=== PATIENT | female | born 1970 | race Caucasian/White ===

== ENCOUNTER → 2016-10-12 | Outpatient (CLI) | payer OTHER ==
[~2016-10-12] MED LIST: ASPIRIN325 MG PO; ASPIRIN81 MG PO; BENADRYL25 MG PO; CANAGLIFLOZIN PO; FLEXERIL10 MG PO; FLEXERIL5 MG PO; GLUMETZA1000 MG PO; HYDROCODONE BIT1 T11 PO; IBU-8800 MG PO; INVOKANA300 M1 PO; INVOKANA300 MG PO; LEVOTHYROXIN0.175 MG PO; METFORMIN1000 MG PO; MOTRIN600 MG PO; MOTRIN800 MG PO; NORFLEX100 MG PO; PEPCID20 MG PO; PREDNICOT20 MG PO; PREDNISONE10 MG PO; ROBITUSSIN AC 110 ML PO; SYNTHROID,LEV175 MCG PO; SYNTHROID,LEVO75 MCG PO; TRADJENTA5 M1 PO; VICODIN 5/500 505 MG PO; [UNRECOGNIZED DRUG - OTHER] PO
[2016-10-12 07:57] LABS: HEMOGLOBIN 14.7 g/dl (12.0-16.0); MEAN CELL VOLUME 88.7 fl (81.0-99.0); MEAN CORPUSCULAR HGB 29.6 pg (27.0-31.0); MEAN CORPUSCULAR HGB CONC 33.4 g/dl (33.0-37.0); RED BLOOD COUNT 4.96 10*6/uL (4.10-5.10); RED CELL DISTRI WIDTH 13.4 % (0-14.5); WHITE BLOOD COUNT 7.6 10*3/uL (4.8-10.8)
[2016-10-12 08:20] LABS: HEMOGLOBIN A1c 7.5 % (4.8-5.6)
[2016-10-12 08:28] LABS: ALBUMIN 3.8 gm/dl (3.1-4.5); ALKALINE PHOSPHATASE 69 U/L (45-117); BILIRUBIN, TOTAL 0.5 mg/dl (0.2-1.0); BUN 13 mg/dl (7-24); CARBON DIOXIDE 26 mmol/L (21-32); CHLORIDE 105 mmol/L (98-107); CHOLESTEROL 212 mg/dL (<200); CPK 51 U/L (26-192); EST GLOM FILT AFRICAN AMERICAN > 60 ml/min; GLUCOSE 196 mg/dL (65-99); HDL CHOLESTEROL 52 mg/dl (40-60); LDL CHOLESTEROL 136 mg/dL (9-159); POTASSIUM 4.7 mmol/L (3.5-5.1); SGOT/AST 10 IU/L (3-35); SGPT/ALT 17 U/L (12-78); SODIUM 140 mmol/L (136-145); TOTAL PROTEIN 7.7 gm/dL (6.4-8.2); TRIGLYCERIDES 121 mg/dl (<150); VLDL CHOLESTEROL 24 mg/dL (6-40)
[2016-10-12 09:16] LABS: VITAMIN D, 25-HYDROXY 22.4 ng/mL (30-100)
== END | disposition home or self-care (01) ==
LOC: LAB 07:25
PROVIDERS: Family Medicine
DX: E55.9 Vitamin D deficiency, unspecified (principal); E11.9 Type 2 diabetes mellitus without complications; I10 Essential (primary) hypertension; E78.00 Pure hypercholesterolemia, unspecified

== ENCOUNTER → 2017-05-23 | Outpatient (CLI) | payer OTHER ==
[2017-05-23 10:05] LABS: ALBUMIN 3.5 gm/dl (3.1-4.5); ALKALINE PHOSPHATASE 77 U/L (45-117); BUN 9 mg/dl (7-24); CHLORIDE 105 mmol/L (98-107); CHOLESTEROL 166 mg/dL (<200); CPK 41 U/L (26-192); CREATININE 0.58 mg/dL (0.55-1.02); FREE T4 1.71 ng/dl (0.76-1.46); HDL CHOLESTEROL 55 mg/dl (40-60); LDL CHOLESTEROL 97 mg/dL (9-159); POTASSIUM 4.1 mmol/L (3.5-5.1); SGOT/AST 11 IU/L (3-35); SGPT/ALT 21 U/L (12-78); SODIUM 138 mmol/L (136-145); TOTAL PROTEIN 7.2 gm/dL (6.4-8.2); TRIGLYCERIDES 68 mg/dl (<150); VLDL CHOLESTEROL 14 mg/dL (6-40)
[2017-05-23 10:12] LABS: THYROID STIM HORMONE (HS) < 0.005 uIU/ml (0.358-4.75)
== END | disposition home or self-care (01) ==
LOC: LAB 09:08
PROVIDERS: Family Medicine
DX: E11.9 Type 2 diabetes mellitus without complications (principal); E03.9 Hypothyroidism, unspecified; M19.90 Unspecified osteoarthritis, unspecified site

== ENCOUNTER 2017-07-29 10:30 | Emergency (ER) | payer OTHER ==
[~2017-07-29] VITALS: Wt 64.4 kg
[2017-07-29 10:49] VITALS: BP 94/77
[2017-07-29 11:21] LABS: BASO # 0.1 10*3/uL (0.0-0.1); BASO % 0.7 % (0.0-1.0); EOS # 0.1 10*3/uL (0.0-0.4); EOS % 1.1 % (1.0-4.0); HEMATOCRIT 44.9 % (37.0-47.0); HEMOGLOBIN 14.8 g/dl (12.0-16.0); LYMPH # 1.6 10*3/uL (1.3-4.4); LYMPH % 18.3 % (27.0-41.0); MEAN CELL VOLUME 89.4 fl (81.0-99.0); MEAN CORPUSCULAR HGB 29.5 pg (27.0-31.0); MEAN PLATELET VOLUME 9.9 fl (9.6-12.3); MONO # 0.6 10*3/uL (0.1-1.0); NEUT # 6.4 10*3/uL (2.3-7.9); NEUT % 72.7 % (47.0-73.0); PLATELET COUNT AUTOMATED 276 10*3/uL (130-400); RED BLOOD COUNT 5.02 10*6/uL (4.10-5.10); RED CELL DISTRI WIDTH 13.5 % (0-14.5); WHITE BLOOD COUNT 8.9 10*3/uL (4.8-10.8)
[2017-07-29 11:35] LABS: INTERNATIONAL NORM RATIO 0.9 (2.0-3.5)
[2017-07-29 11:37] LABS: ALBUMIN 3.7 gm/dl (3.1-4.5); ALKALINE PHOSPHATASE 92 U/L (45-117); BUN 10 mg/dl (7-24); CHLORIDE 103 mmol/L (98-107); CREATININE 0.72 mg/dL (0.55-1.02); POTASSIUM 4.2 mmol/L (3.5-5.1); SGOT/AST 11 IU/L (3-35); SGPT/ALT 17 U/L (12-78); SODIUM 137 mmol/L (136-145); TOTAL PROTEIN 7.3 gm/dL (6.4-8.2)
[2017-07-29 11:38] LABS: TROPONIN I < 0.015 ng/ml (<0.045)
== END 2017-07-29 14:12 | disposition home or self-care (01) ==
LOC: ED 10:30
PROVIDERS: Physician Assistant
DX: M79.89 Other specified soft tissue disorders (principal); Z88.0 Allergy status to penicillin; Z88.1 Allergy status to other antibiotic agents; Z79.899 Other long term (current) drug therapy; Z79.82 Long term (current) use of aspirin; Z86.718 Personal history of other venous thrombosis and embolism

== ENCOUNTER 2017-12-11 11:16 | Inpatient (IN) | payer OTHER ==
[2017-12-11] VITALS (9 sets, daily range): BP systolic 89–177; BP diastolic 50–88
[~2017-12-11] VITALS: Ht 162.5 cm; Wt 67.7 kg
--- NOTE | ~2017-12-11 | EKG ---
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
--- NOTE | ~2017-12-11 | PR ---
[place], [place] PROGRESS NOTE NAME: CARLYN FELIX [facility] #: [id number] UNIT #: [id number] ROOM: 503 DOCTOR: LUZ STRONG MD BIRTHDATE: [birth year] DOS: 12/12/2017 SUBJECTIVE: The patient was seen at her bedside today, 12/12/2017, with family in attendance. She is a 47-year-old woman with no previous personal cardiac history, who presented to the hospital with several weeks of intermittent left anterior chest pain with radiation to the neck and back. Episodes occurred with exertion and were improved with rest. The episodes could last extended period of time and were not associated with diaphoresis, dyspnea, syncope, etc. She came to the Emergency Room because of episodic lightheadedness, at the request of her primary physician, Dr. Gamboa. Since she has been in the hospital, she has had several electrocardiograms, which show no evidence for ischemia. Serial cardiac troponin levels have all been normal. PHYSICAL EXAMINATION: VITAL SIGNS: Today her pulse is 80 and regular, blood pressure is 105/69. She is afebrile. She weighs 67.7 kg and has a body mass index of 25.6. NECK: Supple. She has no jugular distention. Carotids are full. LUNGS: Respirations are unlabored. Her chest is clear to auscultation and percussion. She has no presacral edema or chest wall tenderness. HEART: Has a regular rhythm. She has an S4 gallop, but no S3. ABDOMEN: Soft and normally active. EXTREMITIES: Showed no edema. IMPRESSION: 1. Chest pain with exertion. The patient has both typical and atypical features to her chest pain. 2. Normal electrocardiogram and cardiac biomarkers. 3. History of factor V Leiden mutation. The patient is on chronic antiplatelet therapy. 4. History of hypothyroidism. 5. Type 2 diabetes mellitus. 6. Family history of coronary artery disease. PLAN: The patient will be discharged to home at this point, but brought back into the hospital within the next few days for an outpatient exercise myocardial perfusion examination. Further recommendations will depend upon the results of her stress test. We will arrange for the patient to come back in within the next few days. I have discussed her situation and management with Dr. Edmar Langford and we were in agreement. [place], [place] PROGRESS NOTE NAME: CARLYN FELIX UNIT #: [id number] ROOM: 503 DOCTOR: LUZ STRONG MD BIRTHDATE: [birth year] LUZ STRONG MD CM:PNTRANS [id number] LUZ STRONG MD 12/13/17 1233 interface
--- NOTE | ~2017-12-11 | EKG ---
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
--- NOTE | ~2017-12-11 | WRIGHTHP ---
[place], [place] PATIENT HISTORY AND PHYSICAL EXAM NAME: CARLYN FELIX [facility] #: [id number] UNIT #: [id number] ROOM: 503 DOCTOR: LAKSHMI FAIRBANKS MD BIRTHDATE: [birth year] DOS: 12/11/2017 HISTORY OF PRESENT ILLNESS: The patient is a 47-year-old female with a past medical history of: 1. Type 2 diabetes mellitus with hemoglobin A1c of 7 prior to admission. 2. Hypothyroidism. 3. History of DVT of the left leg and left eye. The patient kept on aspirin. 4. Factor V coagulopathy. The patient presented to the Emergency Department with few days complaint of chest pains going into the back off and on. The pains were midsternal and also going into the left neck. The patient also realized that she has had these pains occasionally for 2 months or more. The pain was worse with exertion and improved with rest. The patient was admitted and Cardiology was consulted. The patient's cardiac enzymes checked out to be normal and assistant men's soccer coach recommended that the patient can be discharged to home since she is asymptomatic and return in a next few days for a cardiac stress test. No more chest pain, shortness of breath. No GI or urinary symptoms. REVIEW OF SYSTEMS: LUNGS: No increasing shortness of breath. GASTROINTESTINAL: No nausea, vomiting, diarrhea or constipation. CARDIOVASCULAR SYSTEM: Complains of chest pains radiating into the back and left shoulder. MEDICATIONS: Levothyroxine, aspirin, Farxiga, omeprazole, metformin. ALLERGIES: KNOWN ALLERGIES TO PENICILLIN, WHICH CAUSES RASH; BIAXIN AND MACROBID. FAMILY HISTORY: Noncontributory, except for some cardiac history in her mother. PHYSICAL EXAMINATION: GENERAL: Alert and oriented x 3. HEENT AND NECK: Extraocular movements are intact. Sclerae are anicteric. Oral mucosa is moist and clean. No obvious facial weakness. Neck is supple without any lymphadenopathy. No thyromegaly. No JVD. No carotid arterial bruits. LUNGS: Clear to auscultation. No wheezing. No rhonchi. CARDIOVASCULAR SYSTEM: Heart rate is regular in rate and rhythm. S1 and S2 normally audible. No significant murmur or any other abnormal cardiac sounds. ABDOMEN: Soft, nontender. No obvious organomegaly. Bowel sounds are present. No obvious herniation. EXTREMITIES: Without significant cyanosis or edema. Warm to touch. CENTRAL NERVOUS SYSTEM: Alert and oriented x 3. Cranial nerves II-XII are intact. Speech is normal. The patient is able to move all extremities. Normal muscle strength. Deep tendon reflexes are equal on both sides. Plantars were downgoing. IMPRESSION: [place], [place] PATIENT HISTORY AND PHYSICAL EXAM NAME: CARLYN FELIX UNIT #: [id number] ROOM: [facility] DOCTOR: LAKSHMI FAIRBANKS MD BIRTHDATE: [birth year] 1. Chest pains from uncertain etiology. Cardiac enzymes were all negative. The patient evaluated by Cardiology and recommended for discharge to home today because she is asymptomatic and for the patient to return in a few days for a cardiac stress test to be performed by the assistant men's soccer coach. 2. The patient to follow up with Dr. Gonzalo Gamboa, her PCP within a week. 3. Type 2 diabetes mellitus, with reasonably controlled blood sugars. Blood sugar 167. HbA1c checked prior to this admission according to the patient was 7, lipase 354. Normal CBC. Chest x-ray with no acute process. The patient with diabetes mellitus, high risk for vascular disease, started on Lipitor by Cardiology. Type 2 diabetes mellitus. Blood sugars appear to be reasonably controlled. 4. Coagulopathy with history of deep venous thrombosis in the left leg and left eye. The patient remains on aspirin for anticoagulation because she has factor V coagulopathy. 5. The patient to follow up with Dr. Gonzalo Gamboa within a week and for a cardiac stress test with the assistant men's soccer coach on Thursday or Thursday. Case was discussed with Dr. Jeffery today. LAKSHMI FAIRBANKS MD CM:HISPHYS:PATIENT HISTORY AND PHYSICAL EXAMINATION 1441 [id number] LAKSHMI FAIRBANKS MD 12/13/17 0220 interface
--- NOTE | ~2017-12-11 | EKG ---
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
[~2017-12-11 11:16] MED LIST changes: -LEVOTHYROXIN0.175 MG PO; +Synthroid,Lev150 MCG PO
[2017-12-11 11:29] LABS: BASO # 0.1 10*3/uL (0.0-0.1); EOS # 0.2 10*3/uL (0.0-0.4); EOS % 2.3 % (1.0-4.0); HEMATOCRIT 45.8 % (37.0-47.0); HEMOGLOBIN 15.4 g/dl (12.0-16.0); LYMPH % 28.1 % (27.0-41.0); MEAN CORPUSCULAR HGB 30.3 pg (27.0-31.0); MEAN CORPUSCULAR HGB CONC 33.6 g/dl (33.0-37.0); MEAN PLATELET VOLUME 10.9 fl (9.6-12.3); MONO # 0.6 10*3/uL (0.1-1.0); MONO % 8.3 % (3.0-9.0); NEUT # 4.4 10*3/uL (2.3-7.9); PLATELET COUNT AUTOMATED 329 10*3/uL (130-400); RED BLOOD COUNT 5.09 10*6/uL (4.10-5.10); WHITE BLOOD COUNT 7.3 10*3/uL (4.8-10.8)
[2017-12-11] MEDS ORDERED: FARXIGA10 M1 PO (11:31)
[2017-12-11] MEDS ORDERED: OMEPRAZOLE40 MG PO (11:31)
[2017-12-11] MEDS ORDERED: METFORMIN HYD1000 MG PO (11:32)
[2017-12-11 12:02] LABS: INTERNATIONAL NORM RATIO 0.9 (2.0-3.5)
[2017-12-11 12:10] LABS: ALBUMIN 3.9 gm/dl (3.1-4.5); ALKALINE PHOSPHATASE 86 U/L (45-117); BUN 11 mg/dl (7-24); CHLORIDE 103 mmol/L (98-107); POTASSIUM 4.3 mmol/L (3.5-5.1); SGOT/AST 11 IU/L (3-35); SGPT/ALT 16 U/L (12-78); SODIUM 137 mmol/L (136-145); TOTAL PROTEIN 7.7 gm/dL (6.4-8.2)
[2017-12-11 12:11] LABS: TROPONIN I < 0.015 ng/ml (<0.045)
[2017-12-12] VITALS: BP 94/52
[2017-12-12 03:45] VITALS: BP 86/58
[2017-12-12 08:00] VITALS: BP 95/57
[2017-12-12 09:03] VITALS: BP 95/57
[2017-12-12 12:00] VITALS: BP 105/69
[2017-12-12 12:57] VITALS: BP 105/69
[2017-12-12] MEDS ORDERED: ATORVASTATIN CA40 M1 PO (14:19)
== END 2017-12-12 15:05 | disposition home or self-care (01) | DRG 313 ==
LOC: ED 11:16 → EDHOLD 12:55 → 5E 12:55
PROVIDERS: Emergency Medicine
DX: R07.89 Other chest pain (principal); D68.51 Activated protein C resistance; D68.9 Coagulation defect, unspecified; E03.9 Hypothyroidism, unspecified; E11.65 Type 2 diabetes mellitus with hyperglycemia; R03.0 Elevated blood-pressure reading, without diagnosis of hypertension; R00.0 Tachycardia, unspecified; Z79.82 Long term (current) use of aspirin; Z79.84 Long term (current) use of oral hypoglycemic drugs; Z88.0 Allergy status to penicillin; Z88.8 Allergy status to other drugs, medicaments and biological substances; Z98.891 History of uterine scar from previous surgery; Z90.710 Acquired absence of both cervix and uterus; Z86.718 Personal history of other venous thrombosis and embolism; Z83.3 Family history of diabetes mellitus; Z82.49 Family history of ischemic heart disease and other diseases of the circulatory system

== ENCOUNTER → 2017-12-16 | Outpatient (CLI) | payer OTHER ==
[~2017-12-16] MED LIST changes: +ATORVASTATIN CA40 M1 PO; +FARXIGA10 M1 PO; +METFORMIN HYD1000 MG PO; +OMEPRAZOLE40 MG PO
--- NOTE | ~2017-12-16 | ST ---
[place], [place] EXERCISE STRESS TEST REPORT NAME: CARLYN FELIX [facility] #: [id number] UNIT #: [id number] ROOM: DOCTOR: ROBERTO JOHNSTON MD BIRTHDATE: [birth year] DOS: 12/16/2017 EXERCISE TREADMILL STRESS TEST REFERRING PHYSICIAN: Dr. Gamboa INDICATION: Chest pain. The patient underwent standard Mickey protocol exercise treadmill stress testing prior to the perfusion scan imaging. The patient's baseline EKG showed nonspecific ST-T wave changes. The patient's baseline heart rate is 83 beats per minute, blood pressure 110/76. The patient exercised for 5 minutes with a peak heart rate of 67, which represents 96.5% of maximum predicted, the patient's peak blood pressure of 140/68. The patient had non-limiting chest discomfort with exertion. The patient had no ischemic change in EKG. No other arrhythmias. The patient's [place] Treadmill score was 1. SUMMARY OF FINDINGS: 1. No inducible ischemic changes on EKG. 2. The patient had exertional chest pain that was nonlimiting. 3. [place] Treadmill score of 1 portending intermediate risk prognosis secondary to the chest pain experience. 4. Please see separate report for perfusion scan imaging results. ROBERTO JOHNSTON MD CM:STRESS:EXERCISE STRESS TEST REPORT 1237 ROBERTO JOHNSTON MD
== END | disposition home or self-care (01) ==
LOC: CARD 01:53
DX: I21.3 ST elevation (STEMI) myocardial infarction of unspecified site (principal)

== ENCOUNTER → 2019-10-15 | Outpatient (CLI) | payer OTHER ==
[2019-10-15 08:50] LABS: HEMATOCRIT 43.7 % (37.0-47.0); MEAN CORPUSCULAR HGB 30.9 pg (27.0-31.0); MEAN CORPUSCULAR HGB CONC 33.6 g/dl (33.0-37.0); MEAN PLATELET VOLUME 9.5 fl (9.6-12.3); RED BLOOD COUNT 4.75 10*6/uL (4.10-5.10); RED CELL DISTRI WIDTH 13.3 % (0-14.5); WHITE BLOOD COUNT 5.9 10*3/uL (4.8-10.8)
[2019-10-15 09:21] LABS: ALBUMIN 3.4 gm/dl (3.1-4.5); ALKALINE PHOSPHATASE 83 U/L (45-117); BUN 12 mg/dl (7-24); CHLORIDE 102 mmol/L (98-107); CHOLESTEROL 232 mg/dL (<200); POTASSIUM 4.7 mmol/L (3.5-5.1); SGOT/AST 7 IU/L (3-35); SGPT/ALT 17 U/L (12-78); SODIUM 136 mmol/L (136-145); TOTAL PROTEIN 7.2 gm/dL (6.4-8.2)
[2019-10-15 09:29] LABS: FREE T4 1.07 ng/dl (0.76-1.46); HDL CHOLESTEROL 51 mg/dl (40-60); LDL CHOLESTEROL 159 mg/dL (9-159); TRIGLYCERIDES 111 mg/dl (<150); VLDL CHOLESTEROL 22 mg/dL (6-40)
== END | disposition home or self-care (01) ==
LOC: LAB 08:33
PROVIDERS: Nurse Practitioner Family
DX: E11.9 Type 2 diabetes mellitus without complications (principal); E55.9 Vitamin D deficiency, unspecified; E78.00 Pure hypercholesterolemia, unspecified; E03.9 Hypothyroidism, unspecified

== ENCOUNTER → 2020-04-28 | Outpatient (CLI) | payer OTHER | END | disposition home or self-care (01) | LOC: COVID19 12:45 | PROVIDERS: ATTEND Nurse Practitioner Family | DX: U07.1 COVID-19 (principal) ==

== ENCOUNTER → 2020-05-07 | Outpatient (CLI) | payer OTHER | END | disposition home or self-care (01) | LOC: RAD 11:17 | PROVIDERS: ATTEND Family Medicine | DX: J18.9 Pneumonia, unspecified organism (principal) ==

== ENCOUNTER → 2020-05-18 | Outpatient (CLI) | payer OTHER | END | disposition home or self-care (01) | LOC: RAD 09:57 | PROVIDERS: ATTEND Family Medicine | DX: J18.9 Pneumonia, unspecified organism (principal) ==

== ENCOUNTER → 2020-12-18 | Outpatient (CLI) | payer OTHER ==
[2020-12-18 09:30] LABS: BASO # 0.1 10*3/uL (0.0-0.1); BASO % 0.9 % (0.0-1.0); EOS # 0.3 10*3/uL (0.0-0.4); EOS % 4.9 % (1.0-4.0); HEMATOCRIT 43.1 % (37.0-47.0); LYMPH # 1.6 10*3/uL (1.3-4.4); LYMPH % 23.6 % (27.0-41.0); MEAN CELL VOLUME 90.5 fl (81.0-99.0); MEAN CORPUSCULAR HGB 30.3 pg (27.0-31.0); MEAN CORPUSCULAR HGB CONC 33.4 g/dl (33.0-37.0); MEAN PLATELET VOLUME 9.7 fl (9.6-12.3); MONO # 0.5 10*3/uL (0.1-1.0); MONO % 7.6 % (3.0-9.0); NEUT # 4.4 10*3/uL (2.3-7.9); NEUT % 62.9 % (47.0-73.0); PLATELET COUNT AUTOMATED 329 10*3/uL (130-400); RED BLOOD COUNT 4.76 10*6/uL (4.10-5.10); RED CELL DISTRI WIDTH 13.1 % (0-14.5); WHITE BLOOD COUNT 6.9 10*3/uL (4.8-10.8)
[2020-12-18 09:47] LABS: ALBUMIN 3.5 gm/dl (3.1-4.5); BUN 8 mg/dl (7-24); CHLORIDE 107 mmol/L (98-107); POTASSIUM 4.2 mmol/L (3.5-5.1); SODIUM 137 mmol/L (136-145)
[2020-12-18 09:55] LABS: ALKALINE PHOSPHATASE 80 U/L (45-117); CHOLESTEROL 201 mg/dL (<200); CREATININE 0.61 mg/dL (0.55-1.02); FREE T4 1.05 ng/dl (0.76-1.46); LDL CHOLESTEROL 140 mg/dL (9-159); SGOT/AST 12 IU/L (3-35); SGPT/ALT 18 U/L (12-78); TOTAL PROTEIN 7.3 gm/dL (6.4-8.2); TRIGLYCERIDES 82 mg/dl (<150)
== END | disposition home or self-care (01) ==
LOC: LAB 08:55
PROVIDERS: ATTEND Family Medicine
DX: E11.9 Type 2 diabetes mellitus without complications (principal); E03.9 Hypothyroidism, unspecified; R53.83 Other fatigue; E55.9 Vitamin D deficiency, unspecified

== ENCOUNTER → 2021-10-04 | Outpatient (CLI) | payer OTHER ==
[2021-10-04 10:42] LABS: HEMATOCRIT 43.5 % (37.0-47.0); MEAN CELL VOLUME 87.9 fl (81.0-99.0); MEAN CORPUSCULAR HGB 30.7 pg (27.0-31.0); MEAN CORPUSCULAR HGB CONC 34.9 g/dl (33.0-37.0); MEAN PLATELET VOLUME 9.6 fl (9.6-12.3); RED BLOOD COUNT 4.95 10*6/uL (4.10-5.10); RED CELL DISTRI WIDTH 12.5 % (0-14.5); WHITE BLOOD COUNT 8.8 10*3/uL (4.8-10.8)
[2021-10-04 11:16] LABS: ALKALINE PHOSPHATASE 81 U/L (45-117); BUN 14 mg/dl (7-24); CHLORIDE 100 mmol/L (98-107); CHOLESTEROL 181 mg/dL (<200); CPK 55 U/L (26-192); CREATININE 0.67 mg/dL (0.55-1.02); FREE T4 1.27 ng/dl (0.76-1.46); LDL CHOLESTEROL 113 mg/dL (9-159); POTASSIUM 4.2 mmol/L (3.5-5.1); SGOT/AST 12 IU/L (3-35); SGPT/ALT 17 U/L (12-78); SODIUM 131 mmol/L (136-145); TOTAL PROTEIN 7.9 gm/dL (6.4-8.2); TRIGLYCERIDES 108 mg/dl (<150)
[2021-10-04 11:20] LABS: VITAMIN D, 25-HYDROXY 18.5 ng/mL (30-100)
[2021-10-04 11:21] LABS: THYROID STIM HORMONE (HS) 0.686 uIU/ml (0.358-4.75)
[2021-10-05 07:07] LABS: FOLLICLE STIMULATING HORMONE 2.8 mIU/mL (.); LUTEINIZING HORMONE 1.5 mIU/mL (.)
[2021-10-08 16:08] LABS: TESTOSTERONE FREE, (DIRECT) 0.5 pg/mL (0.0-4.2)
== END | disposition home or self-care (01) ==
LOC: LAB 10:21
PROVIDERS: ATTEND Family Medicine
DX: I10 Essential (primary) hypertension (principal); E11.9 Type 2 diabetes mellitus without complications; E03.9 Hypothyroidism, unspecified; E78.00 Pure hypercholesterolemia, unspecified; N95.1 Menopausal and female climacteric states

== ENCOUNTER 2023-03-16 05:08 | Emergency (ER) | payer OTHER ==
[~2023-03-16] VITALS: Ht 160 cm; Wt 77.1 kg
[2023-03-16 05:10] VITALS: BP 138/87
[2023-03-16] MEDS ORDERED: LEVOTHYROXINE150 MCG PO (05:19)
[2023-03-16] MEDS ORDERED: METFORMIN XR500 MG PO (05:19)
[2023-03-16 05:59] LABS: ALKALINE PHOSPHATASE 80 U/L (46-116); BUN 9 mg/dl (9-23); CHLORIDE 103 mmol/L (98-107); SGPT/ALT 15 U/L (10-49); TOTAL PROTEIN 7.1 gm/dL (6.0-8.0)
[2023-03-16 06:01] LABS: BASO # 0.1 10*3/uL (0.0-0.1); BASO % 0.9 % (0.0-1.0); EOS # 0.6 10*3/uL (0.0-0.4); EOS % 8.2 % (1.0-4.0); HEMATOCRIT 42.6 % (37.0-47.0); LYMPH # 1.4 10*3/uL (1.3-4.4); MEAN CELL VOLUME 90.4 fl (81.0-99.0); MEAN CORPUSCULAR HGB 31.4 pg (27.0-31.0); MEAN CORPUSCULAR HGB CONC 34.7 g/dl (33.0-37.0); MEAN PLATELET VOLUME 10.4 fl (9.6-12.3); MONO # 0.7 10*3/uL (0.1-1.0); MONO % 9.9 % (3.0-9.0); NEUT # 4.5 10*3/uL (2.3-7.9); NEUT % 60.3 % (47.0-73.0); PLATELET COUNT AUTOMATED 312 10*3/uL (130-400); RED BLOOD COUNT 4.71 10*6/uL (4.10-5.10); RED CELL DISTRI WIDTH 13.2 % (0-14.5); WHITE BLOOD COUNT 7.5 10*3/uL (4.8-10.8)
[2023-03-16] MEDS ORDERED: OMNICEF300 MG PO (06:11)
== END 2023-03-16 06:54 | disposition home or self-care (01) ==
LOC: ED 05:08
PROVIDERS: Internal Medicine
DX: J40 Bronchitis, not specified as acute or chronic (principal); E11.9 Type 2 diabetes mellitus without complications; Z86.718 Personal history of other venous thrombosis and embolism; K21.9 Gastro-esophageal reflux disease without esophagitis; E78.00 Pure hypercholesterolemia, unspecified; Z88.0 Allergy status to penicillin; Z88.1 Allergy status to other antibiotic agents; Z88.8 Allergy status to other drugs, medicaments and biological substances; Z90.710 Acquired absence of both cervix and uterus; Z98.890 Other specified postprocedural states; Z20.822 Contact with and (suspected) exposure to COVID-19

== ENCOUNTER → 2023-08-01 | Outpatient (CLI) | payer OTHER ==
[~2023-08-01] MED LIST changes: +LEVOTHYROXINE150 MCG PO; +METFORMIN XR500 MG PO; +OMNICEF300 MG PO
[2023-08-01 07:35] LABS: HEMATOCRIT 43.5 % (37.0-47.0); MEAN CORPUSCULAR HGB CONC 32.6 g/dl (33.0-37.0); MEAN PLATELET VOLUME 9.6 fl (9.6-12.3); RED BLOOD COUNT 4.58 10*6/uL (4.10-5.10); RED CELL DISTRI WIDTH 13.2 % (0-14.5); WHITE BLOOD COUNT 6.9 10*3/uL (4.8-10.8)
[2023-08-01 08:00] LABS: ALKALINE PHOSPHATASE 85 U/L (46-116); BUN 11 mg/dl (9-23); CHLORIDE 105 mmol/L (98-107); CHOLESTEROL 194 mg/dL (<200); CPK 64 U/L (34-171); FREE T4 1.34 ng/dl (0.89-1.76); LDL CHOLESTEROL 124 mg/dL (9-159); POTASSIUM 4.5 mmol/L (3.4-5.1); SGPT/ALT 8 U/L (5-49); TOTAL PROTEIN 7.4 gm/dL (6.0-8.0); TRIGLYCERIDES 73 mg/dl (<150)
== END | disposition home or self-care (01) ==
LOC: LAB 02:15
PROVIDERS: ATTEND Family Medicine
DX: E11.9 Type 2 diabetes mellitus without complications (principal); K21.9 Gastro-esophageal reflux disease without esophagitis; E03.9 Hypothyroidism, unspecified; E78.00 Pure hypercholesterolemia, unspecified; I10 Essential (primary) hypertension

== ENCOUNTER 2023-08-20 07:05 | Emergency (ER) | payer OTHER ==
[2023-08-20 07:15] VITALS: BP 143/95
[2023-08-20 07:47] LABS: BASO # 0.1 10*3/uL (0.0-0.1); BASO % 0.9 % (0.0-1.0); EOS # 0.2 10*3/uL (0.0-0.4); EOS % 2.6 % (1.0-4.0); HEMATOCRIT 45.8 % (37.0-47.0); LYMPH # 1.9 10*3/uL (1.3-4.4); LYMPH % 28.6 % (27.0-41.0); MEAN CELL VOLUME 95.6 fl (81.0-99.0); MEAN CORPUSCULAR HGB 30.7 pg (27.0-31.0); MEAN CORPUSCULAR HGB CONC 32.1 g/dl (33.0-37.0); MEAN PLATELET VOLUME 9.9 fl (9.6-12.3); MONO # 0.6 10*3/uL (0.1-1.0); MONO % 9.4 % (3.0-9.0); NEUT # 3.8 10*3/uL (2.3-7.9); NEUT % 58.3 % (47.0-73.0); PLATELET COUNT AUTOMATED 343 10*3/uL (130-400); RED BLOOD COUNT 4.79 10*6/uL (4.10-5.10); RED CELL DISTRI WIDTH 13.2 % (0-14.5); WHITE BLOOD COUNT 6.5 10*3/uL (4.8-10.8)
[2023-08-20 08:04] LABS: ACT PARTIAL THROMBO TIME 25.1 SECONDS (20.0-32.1)
[2023-08-20 08:08] LABS: ALKALINE PHOSPHATASE 76 U/L (46-116); BUN 8 mg/dl (9-23); CHLORIDE 100 mmol/L (98-107); LIPASE 35 U/L (12-53); POTASSIUM 3.8 mmol/L (3.4-5.1); SGPT/ALT 12 U/L (5-49); TOTAL PROTEIN 7.5 gm/dL (6.0-8.0)
[2023-08-20 08:13] LABS: BETA-HCG, QUANT < 3.0 mIU/mL (3-10)
[2023-08-20] MEDS ORDERED: SODIUM CHLORIDE 0.9% 100 ML BAG IV ONE (08:45)
[2023-08-20] MEDS ORDERED: IOHEXOL 350 MG/ML 100 ML VIAL IV ONE (08:45)
== END 2023-08-20 09:57 | disposition home or self-care (01) ==
LOC: ED 07:05
PROVIDERS: Emergency Medicine
DX: S29.011A Strain of muscle and tendon of front wall of thorax, initial encounter (principal); E11.9 Type 2 diabetes mellitus without complications; Z86.718 Personal history of other venous thrombosis and embolism; K21.9 Gastro-esophageal reflux disease without esophagitis; R10.2 Pelvic and perineal pain; E78.00 Pure hypercholesterolemia, unspecified; Z88.0 Allergy status to penicillin; Z88.1 Allergy status to other antibiotic agents; Z88.8 Allergy status to other drugs, medicaments and biological substances; Z90.710 Acquired absence of both cervix and uterus; Z98.890 Other specified postprocedural states; X50.1XXA Overexertion from prolonged static or awkward postures, initial encounter; Y93.89 Activity, other specified; Y92.89 Other specified places as the place of occurrence of the external cause; Y99.8 Other external cause status

== ENCOUNTER → 2024-10-31 | Outpatient (CLI) | payer BC ==
[2024-10-31 09:17] LABS: HEMATOCRIT 44.3 % (37.0-47.0); MEAN CELL VOLUME 91.5 fl (81.0-99.0); MEAN CORPUSCULAR HGB CONC 33.9 g/dl (33.0-37.0); MEAN PLATELET VOLUME 10.1 fl (9.6-12.3); RED BLOOD COUNT 4.84 10*6/uL (4.10-5.10); RED CELL DISTRI WIDTH 13.1 % (0-14.5); WHITE BLOOD COUNT 7.1 10*3/uL (4.8-10.8)
[2024-10-31 10:06] LABS: ALKALINE PHOSPHATASE 105 U/L (46-116); BUN 16 mg/dl (9-23); CHLORIDE 99 mmol/L (98-107); CHOLESTEROL 242 mg/dL (<200); LDL CHOLESTEROL 158 mg/dL (9-159); POTASSIUM 4.3 mmol/L (3.4-5.1); SGPT/ALT 15 U/L (5-49); TOTAL PROTEIN 7.5 gm/dL (6.0-8.0); TRIGLYCERIDES 178 mg/dl (<150)
== END | disposition home or self-care (01) ==
LOC: LAB 08:37
PROVIDERS: ATTEND Family Medicine
DX: E11.9 Type 2 diabetes mellitus without complications (principal); E78.00 Pure hypercholesterolemia, unspecified; E55.9 Vitamin D deficiency, unspecified; Z79.899 Other long term (current) drug therapy

== ENCOUNTER → 2025-03-04 | Outpatient (CLI) | payer BC ==
[2025-03-04 08:32] LABS: MEAN CELL VOLUME 93.5 fl (81.0-99.0); MEAN CORPUSCULAR HGB 30.4 pg (27.0-31.0); MEAN PLATELET VOLUME 9.9 fl (9.6-12.3); NUCLEATED RED BLOOD CELL 0.0 % (0.0-0.0); NUCLEATED RED BLOOD CELL 0.0 10*3/uL (0.0-0.0); PLATELET COUNT AUTOMATED 338.0 10*3/uL (130-400); RED CELL DISTRI WIDTH 13.1 % (0-14.5)
[2025-03-04 09:14] LABS: BUN 10 mg/dl (9-23); CPK 84 U/L (34-171); FREE T4 1.45 ng/dl (0.89-1.76); LDL CHOLESTEROL 146 mg/dL (9-159); SGPT/ALT 16 U/L (5-49)
[2025-03-04 09:45] LABS: VITAMIN D, 25-HYDROXY 28.3 ng/mL (30-100)
== END | disposition home or self-care (01) ==
LOC: LAB 08:02
PROVIDERS: ATTEND Family Medicine
DX: I10 Essential (primary) hypertension (principal); E11.9 Type 2 diabetes mellitus without complications; E03.9 Hypothyroidism, unspecified; E55.9 Vitamin D deficiency, unspecified; K21.9 Gastro-esophageal reflux disease without esophagitis

== ENCOUNTER → 2025-05-20 | Outpatient (CLI) | payer BC | END | disposition home or self-care (01) | LOC: RAD 07:46 | PROVIDERS: ATTEND Family Medicine | DX: J12.81 Pneumonia due to SARS-associated coronavirus (principal) ==